=== PATIENT | female | born 1995 | race Caucasian/White ===

== ENCOUNTER 2018-01-14 22:20 | Emergency (ER) | payer OTHER ==
[~2018-01-14] VITALS: Ht 165.1 cm; Wt 59.0 kg
[~2018-01-14 22:20] MED LIST: AUGMENTIN 875875 MG PO; NORCO 5-325 TA1 EACH PO
[2018-01-14] MEDS ORDERED: BACTRIM DS TAB1 EACH PO (23:14)
[2018-01-14] MEDS ORDERED: KEFLEX500 M1 PO (23:14)
[2018-01-14] MEDS ORDERED: NORCO 5-325 TA1 EACH PO (23:14)
[2018-01-15 00:13] VITALS: BP 116/77
== END 2018-01-15 00:14 | disposition home or self-care (01) ==
LOC: ER 22:20
DX: L03.313 Cellulitis of chest wall (principal); L72.8 Other follicular cysts of the skin and subcutaneous tissue; F17.210 Nicotine dependence, cigarettes, uncomplicated